=== PATIENT | female | born 1995 | race Asian ===

== ENCOUNTER 2017-07-23 11:43 | Emergency (ER) | payer SELFPAY, OTHER ==
[2017-07-23 12:22] LABS: BILIRUBIN,URINE NEGATIVE (NEG); CLARITY,URINE CLEAR; COLOR,URINE YELLOW; GLUCOSE,URINE NEGATIVE (NEG); NITRITE,URINE NEGATIVE (NEG); PROTEIN,URINE NEGATIVE (NEG-TRACE); UROBILINOGEN,URINE 0.2 mg/dL (0.2 mg/dL)
[2017-07-23 12:31] LABS: BACTERIA,URINE MODERATE /HPF (0-FEW); RBC,URINE 0 /HPF (0-2); SQUAMOUS EPITHELIAL CELL,UR FEW /LPF; WBC,URINE >40 /HPF (0-4)
[2017-07-23 12:32] LABS: NEG OBC UR NEG; POS OBC UR POS; U PREG PATIENT NEGATIVE (NEG)
== END 2017-07-23 12:57 | disposition home or self-care (01) ==
LOC: ER 11:43
DX: N39.0 Urinary tract infection, site not specified (principal)
CPT/HCPCS: 81001; 81025; 84703; 87086; 99284

== ENCOUNTER 2018-09-09 12:04 | Emergency (ER) | payer MEDICAID, SELFPAY ==
[~2018-09-09] VITALS: Ht 157.5 cm; Wt 72.6 kg
[~2018-09-09 12:04] MED LIST: CEPH500T PO; IBUP-1007 PO; PHEN100T82 PO
[2018-09-09 12:09] VITALS: BP 167/78
--- NOTE | 2018-09-09 12:22 | PHYS DOC ---
Past Medical History Past Medical History: No Pertinent History Past Surgical History: Alcohol Use: None Drug Use: None Adult General Chief Complaint Chief Complaint: ANKLE PROBLEM HPI HPI Patient is a 23 year old female with no significant medical history who presents to the ED today complaining of 8 out of 10 right lateral ankle pain that began yesterday, patient states she was playing volleyball, she states she stepped in a hole and rolled her right ankle. She states she woke up this morning and was not able to bear weight the right ankle. She describes the pain as sharp and constant worse on weight bearing. Denies any relieving the pain. Review of Systems Review of Systems Constitutional: Denies fever or chills [] Musculoskeletal: Reports right ankle pain Integument: Denies rash or skin lesions [] Neurologic: Denies headache, focal weakness or sensory changes [] All other systems were reviewed and found to be within normal limits, except as documented in this note. Allergies Allergies Allergies Coded Allergies Type Severity Reaction Last Updated Verified No Known Drug Allergies 07/23/17 No Physical Exam Physical Exam Constitutional: Well developed, well nourished, no acute distress, non-toxic appearance. [] Skin: Warm, dry, no erythema, no rash. [] Back: No tenderness, no CVA tenderness. [] Extremities: Right ankle with no obvious gross deformity. Soft tissue swelling noted on the medial and lateral aspect of the ankle. Tenderness on palpation of the right lateral ankle. Full range of motion to the right ankle and foot as well as toes. +2 right pedal pulse. Cap refill less than 2 seconds the right toes. Neurologic: Alert and oriented X 3, normal motor function, normal sensory function, no focal deficits noted. [] Psychologic: Affect normal, judgement normal, mood normal. [] Current Patient Data Vital Signs Vital Signs Date Time Temp Pulse Resp B/P (MAP) Pulse Ox O2 Delivery O2 Flow Rate FiO2 09/09/18 12:09 97.9 89 16 167/78 (107) 99 Room Air 97.9 EKG EKG [] Radiology/Procedures Radiology/Procedures []PROCEDURE: ANKLE RIGHT 3V Examination: 3 views of the right ankle History: History of twisted right ankle Comparison: None available Findings: The alignment of the ankle mortise grossly appears unremarkable. There is no acute fracture identified. Moderate soft tissue swelling identified lateral to lateral malleolus. Impression: 1. No acute osseous findings. 2. Moderate soft tissue swelling lateral identified lateral to lateral malleolus likely soft tissue injury. DICTATED and SIGNED BY: COLTON RIBEIRO MD DATE: 09/09/18 1232 Course & Med Decision Making Course & Med Decision Making Pertinent Labs and Imaging studies reviewed. (See chart for details) This is a 23-year-old female patient presenting to the ED today with right ankle pain after rolling her right ankle yesterday. Right ankle x-rays interpreted by radiologist were negative for any acute findings. Air cast applied to the right ankle. Ice elevation encouraged. OTC pain relievers. Follow-up with orthopedic doctor in 1-2 weeks Dragon Disclaimer Dragon Disclaimer This electronic medical record was generated, in whole or in part, using a voice recognition dictation system. Departure Departure Impression: Primary Impression: Right ankle sprain Disposition: HOME, SELF-CARE Condition: STABLE Referrals: KIERAN BRIGGS MD (PCP) DEMETRIO LUIS II, MD follow up in 1-2 weeks Patient Instructions: Ankle Sprain Additional Instructions: You were evaluated in the medicine for right ankle pain, your right ankle x-rays were negative for any acute findings. Wear the air cast provided as tolerated. Try to ice and elevate the extremity. Take [id number] pain relievers as needed including Tylenol/Ibuprofen. Follow-up with your own doctor the provided orthopedic doctor in 1-2 weeks. Problem Qualifiers Primary Impression: Right ankle sprain Encounter type: initial encounter Involved ligament of ankle: unspecified ligament Qualified Codes: S93.401A - Sprain of unspecified ligament of rig ht ankle, initial encounter JASON CAMACHO PRESS MANAGER Sep 09, 2018 12:22
--- NOTE | 2018-09-09 12:39 | RAD ---
Examination: 3 views of the right ankle History: History of twisted right ankle Comparison: None available Findings: The alignment of the ankle mortise grossly appears unremarkable. There is no acute fracture identified. Moderate soft tissue swelling identified lateral to lateral malleolus. Impression: 1. No acute osseous findings. 2. Moderate soft tissue swelling lateral identified lateral to lateral malleolus likely soft tissue injury.
== END 2018-09-09 13:13 | disposition home or self-care (01) ==
LOC: ER 12:04
DX: S93.401A Sprain of unspecified ligament of right ankle, initial encounter (principal); W18.42XA Slipping, tripping and stumbling without falling due to stepping into hole or opening, initial encounter; Y93.68 Activity, volleyball (beach) (court); Y92.89 Other specified places as the place of occurrence of the external cause; Y99.8 Other external cause status
CPT/HCPCS: 73610; 99284; L4350

== ENCOUNTER → 2019-06-19 | Outpatient (CLI) | payer OTHER ==
--- NOTE | 2019-06-19 16:40 | RAD ---
AP and Lateral Views of the Chest 06/19/2019 12:00 AM Indication: Preoperative Comparison: None Findings: There is no focal consolidation or infiltrate identified. The cardiomediastinal silhouette is within normal limits. There is no evidence of pneumothorax or pleural effusion. No acute osseous abnormalities are identified. Impression: No evidence of acute cardiopulmonary process. Electronically signed by: Steven Mosher MD (06/19/2019 4:37 PM) [id number]
== END | disposition home or self-care (01) ==
LOC: RAD 15:52
PROVIDERS: ATTEND Family Medicine
DX: Z01.818 Encounter for other preprocedural examination (principal)
CPT/HCPCS: 71046